=== PATIENT | male | born 1975 | race Caucasian/White ===

== ENCOUNTER 2021-04-20 11:56 | Emergency (ER) | payer MEDICAID ==
[~2021-04-20] VITALS: Ht 157.5 cm; Wt 108.9 kg
[2021-04-20 12:08] VITALS: BP_SYST 162
[2021-04-20] MEDS ORDERED: TRAM50TA PO (12:50)
[2021-04-20] MEDS ORDERED: NAPR-688 PO (12:50)
[2021-04-20 13:07] VITALS: BP_SYST 162
== END 2021-04-20 13:08 | disposition home or self-care (01) ==
LOC: SED 11:56
DX: S83.92XA Sprain of unspecified site of left knee, initial encounter (principal); Z79.899 Other long term (current) drug therapy; X50.1XXA Overexertion from prolonged static or awkward postures, initial encounter; Y93.89 Activity, other specified; Y92.89 Other specified places as the place of occurrence of the external cause; Y99.8 Other external cause status
CPT/HCPCS: 73564; 99283